=== PATIENT | male | born 1950 | race Two or more races ===

== ENCOUNTER → 2016-04-21 | Outpatient (CLI) | payer BC ==
[~2016-04-21] MED LIST: ASPI81CH43 GT; LEVO125T66 OR; LOSA50TA26 OR; ROSU10TA16 OR; SITA50TA13 OR
[2016-04-21 08:32] LABS: Urine RBC None Seen /hpf (0 - 3)
[2016-04-21 08:50] LABS: Basophils # (auto) 0 uL; Basophils % (auto) 0.4 % (0.0-2.0); Eosinophils # (auto) 0.1 uL; Eosinophils % (auto) 1.7 % (0.0-7.0); Hematocrit 44.8 % (41.0-53.0); Hemoglobin 14.6 g/dL (13.5-17.5); Lymphocytes # (auto) 2.3 uL; Mean Corpuscular Hemoglobin 28.7 pg (28.0-32.0); Mean Corpuscular Hgb Conc. 32.5 g/dL (32.0-36.0); Mean Corpuscular Volume 88.3 fL (80.0-100.0); Mean Platelet Volume 7.8 fL (7.4-10.4); Monocytes # (auto) 0.7 uL; Monocytes % (auto) 9.1 % (0.0-12.0); Neutrophils # (auto) 4.7 uL; Neutrophils % (auto) 59.8 % (37.0-80.0); Platelet Count (auto) 243 10^3/uL (140-450); Red Cell Distribution Width 14.1 % (11.6-16.0); White Blood Cell 7.8 10^3/uL (4.4-10.8)
[2016-04-21 08:58] LABS: Urine Bilirubin Negative (Negative); Urine Blood Negative /uL (Negative); Urine Color Yellow (Yellow); Urine Ketone Negative (Negative); Urine Nitrite Negative (Negative); Urine Squamous Epithelial Cell FEW /hpf (<5); Urine Urobilinogen Normal (Negative)
[2016-04-21 09:12] LABS: Albumin 4.3 g/dL (3.4-5.0); Bilirubin, Total 0.4 mg/dL (0.2-1.0); Calcium 9.9 mg/dL (8.5-10.1); Potassium 4.6 mmol/L (3.5-5.1); Total Protein 7.7 g/dL (6.4-8.2); Urine Glucose 4+ mg/dL (Normal)
[2016-04-21 09:17] LABS: Urine Protein/Creatinine Ratio 0.12
== END | disposition home or self-care (01) ==
LOC: LAB 08:16
DX: E03.9 Hypothyroidism, unspecified (principal); E13.9 Other specified diabetes mellitus without complications; E11.9 Type 2 diabetes mellitus without complications; E78.00 Pure hypercholesterolemia, unspecified
CPT/HCPCS: 36415; 80053; 80061; 81001; 82043; 82570; 83036; 84156; 84443; 85025

== ENCOUNTER 2016-05-13 19:17 | Emergency (ER) | payer BC ==
[~2016-05-13] VITALS: Ht 160 cm; Wt 62.6 kg
[2016-05-13] MEDS ORDERED: SODIUM CHLORIDE 0.9% 500 ML IV ONE (19:52)
[2016-05-13] MEDS ORDERED: ONDANSETRON HCL 4 MG/2 ML VIAL IV ONE (20:00)
[2016-05-13] MEDS ORDERED: MORPHINE SULFATE 4 MG/ML SYRG IV ONE (20:00)
[2016-05-13 20:30] VITALS: BP 126/77
[2016-05-13] MEDS ORDERED: HYDROmorphone HCL 2 MG/ML VL IV ONE (21:30)
== END 2016-05-13 21:54 | disposition home or self-care (01) ==
LOC: EEVIPCON 19:22 → EDUNIT# 19:22 → ER 19:22
DX: M25.511 Pain in right shoulder (principal); M54.2 Cervicalgia; E11.9 Type 2 diabetes mellitus without complications; E78.5 Hyperlipidemia, unspecified; I10 Essential (primary) hypertension
CPT/HCPCS: 96361; 96374; 96375; 99285; J1170; J2270; J2405

== ENCOUNTER 2016-05-14 07:09 | Emergency (ER) | payer BC ==
[~2016-05-14] VITALS: Ht 160 cm; Wt 62.6 kg
[2016-05-14 08:15] LABS: Basophils # (auto) 0 uL; Basophils % (auto) 0.3 % (0.0-2.0); Eosinophils # (auto) 0 uL; Eosinophils % (auto) 0.5 % (0.0-7.0); Hematocrit 42.1 % (41.0-53.0); Hemoglobin 13.9 g/dL (13.5-17.5); Lymphocytes # (auto) 1.9 uL; Lymphocytes % (auto) 28.9 % (10.0-50.0); Mean Corpuscular Volume 87.9 fL (80.0-100.0); Mean Platelet Volume 7.2 fL (7.4-10.4); Monocytes # (auto) 0.5 uL; Neutrophils # (auto) 4.1 uL; Neutrophils % (auto) 62.3 % (37.0-80.0); Platelet Count (auto) 239 10^3/uL (140-450); White Blood Cell 6.6 10^3/uL (4.4-10.8)
[2016-05-14] MEDS ORDERED: SODIUM CHLORIDE 0.9% 1,000 ML IV ONE (08:16)
[2016-05-14 08:24] LABS: Albumin 3.7 g/dL (3.4-5.0); BUN/Creatinine Ratio 17.5; Calcium 9.4 mg/dL (8.5-10.1); Potassium 3.9 mmol/L (3.5-5.1)
[2016-05-14] MEDS ORDERED: KETOROLAC TROMETH 30 MG/ML 1ML VIAL IV ONE (08:30)
[2016-05-14] MEDS ORDERED: PROMETHAZINE HCL 25 MG/ML 1ML IV ONE (08:30)
[2016-05-14] MEDS ORDERED: DEXAMETHASONE SOD PHOS 10MG/1ML VIAL INJ IV ONE (08:30)
[2016-05-14 08:36] LABS: Bilirubin, Total 0.4 mg/dL (0.2-1.0); Total Protein 6.9 g/dL (6.4-8.2)
[2016-05-14] MEDS ORDERED: ONDANSETRON HCL 4 MG/2 ML VIAL IV ONE (12:45)
[2016-05-14] MEDS ORDERED: MORPHINE SULF INJ 2 MG/ML SYRINGE 1ML IV ONE (12:45)
[2016-05-14 13:11] VITALS: BP 130/72
== END 2016-05-14 14:23 | disposition home or self-care (01) ==
LOC: ER 07:10 → EDUNIT# 07:10 → ER 14:23
DX: M54.12 Radiculopathy, cervical region (principal); S46.911D Strain of unspecified muscle, fascia and tendon at shoulder and upper arm level, right arm, subsequent encounter; R51 Headache; E11.9 Type 2 diabetes mellitus without complications; E78.5 Hyperlipidemia, unspecified; Z88.0 Allergy status to penicillin; Z88.6 Allergy status to analgesic agent
CPT/HCPCS: 36415; 70450; 80053; 83735; 84443; 84484; 85025; 96361; 96374; 96375; 99285; J1100; J1885; J2270; J2405; J2550; J7030

== ENCOUNTER 2020-07-31 20:43 | Emergency (ER) | payer BC ==
[~2020-07-31] VITALS: Ht 175.3 cm; Wt 72.6 kg
[~2020-07-31 20:43] MED LIST changes: +LEVO125T OR; -LEVO125T66 OR; -LOSA50TA26 OR; +LOSA50TA7 OR
[2020-07-31] MEDS ORDERED: BACITRACIN TOP OINT 1 UD PKG TOP ONE ×2 (21:00→23:28)
[2020-07-31] MEDS ORDERED: KETOROLAC TROMETH 30 MG/ML 1ML VIAL IV ONE (21:45)
[2020-07-31 22:06] LABS: Basophils # (auto) 0 10 ^3/uL (0-0.2); Eosinophils # (auto) 0.1 10 ^3/uL (0-0.8); Hemoglobin 11.9 g/dL (13.5-17.5); Nucleated Red Blood Cells % 0.1 %; Platelet Count (auto) 197 10^3/uL (140-450)
[2020-07-31 22:07] VITALS: BP 133/92
[2020-07-31 22:08] LABS: Basophils % (auto) 0.5 % (0.0-2.0); Eosinophils % (auto) 0.9 % (0.0-7.0); Hematocrit 35.3 % (41.0-53.0); Lymphocytes # (auto) 1.6 10 ^3/uL (0.4-5.4); Lymphocytes % (auto) 21.3 % (10.0-50.0); Mean Corpuscular Hemoglobin 27.4 pg (28.0-32.0); Mean Corpuscular Hgb Conc. 33.8 g/dL (32.0-36.0); Monocytes # (auto) 0.7 10 ^3/uL (0-1.3); Monocytes % (auto) 9.8 % (0.0-12.0); Neutrophils # (auto) 5.1 10 ^3/uL (1.6-8.6); Neutrophils % (auto) 67.5 % (37.0-80.0); Red Blood Cells 4.36 10^6/uL (4.5-5.90); Red Cell Distribution Width 16.6 % (11.8-14.3); White Blood Cell 7.5 10^3/uL (4.4-10.8)
[2020-07-31 22:24] LABS: Albumin 3.9 g/dL (3.4-5.0); Anion Gap 9 (5-15); Blood Urea Nitrogen 17 mg/dL (7-18); Calcium 9.6 mg/dL (8.5-10.1); Carbon Dioxide 25 mmol/L (21-32); Chloride 102 mmol/L (98-107); Glucose 182 mg/dL (74-106); INR 1.08 (0.9-1.15); Partial Thromboplastin Time 24.4 sec (23.0-31.2); Sodium 136 mmol/L (136-145)
[2020-07-31 22:29] LABS: Alanine Aminotransferase 35 U/L (16-61); Alkaline Phosphatase 59 U/L (45-117); Aspartate Aminotransferase 27 U/L (15-37); Bilirubin, Total 0.5 mg/dL (0.2-1.0); GFR African American 115 mL/min; GFR Non-African American 95 mL/min
== END 2020-07-31 23:30 | disposition home or self-care (01) ==
LOC: ER 20:43 → EEVIPCON 20:43 → EDBD 20:43 → ER 23:30
DX: S52.234A Nondisplaced oblique fracture of shaft of right ulna, initial encounter for closed fracture (principal); S09.93XA Unspecified injury of face, initial encounter; S51.012A Laceration without foreign body of left elbow, initial encounter; E11.9 Type 2 diabetes mellitus without complications; I10 Essential (primary) hypertension; E78.5 Hyperlipidemia, unspecified; Z79.82 Long term (current) use of aspirin; Z79.899 Other long term (current) drug therapy; W19.XXXA Unspecified fall, initial encounter; Y93.89 Activity, other specified; Y92.89 Other specified places as the place of occurrence of the external cause; Y99.8 Other external cause status
CPT/HCPCS: 29125; 36415; 70450; 70486; 73080; 73090; 73110; 80053; 84484; 85025; 85610; 85730; 96374; 99285; J1885

== ENCOUNTER 2020-08-02 09:26 | Inpatient (IN) | payer BC ==
[~2020-08-02] VITALS: Ht 167.6 cm; Wt 75.4 kg
[2020-08-02 10:12] VITALS: BP 138/77
[2020-08-02 10:47] LABS: Basophils # (auto) 0 10 ^3/uL (0-0.2); Basophils % (auto) 0.3 % (0.0-2.0); Eosinophils # (auto) 0.1 10 ^3/uL (0-0.8); Eosinophils % (auto) 0.9 % (0.0-7.0); Hematocrit 34.9 % (41.0-53.0); Hemoglobin 11.6 g/dL (13.5-17.5); Lymphocytes % (auto) 19.6 % (10.0-50.0); Mean Corpuscular Hemoglobin 27.1 pg (28.0-32.0); Mean Corpuscular Hgb Conc. 33.2 g/dL (32.0-36.0); Mean Corpuscular Volume 81.7 fL (80.0-100.0); Monocytes # (auto) 0.5 10 ^3/uL (0-1.3); Neutrophils # (auto) 3.7 10 ^3/uL (1.6-8.6); Neutrophils % (auto) 69.2 % (37.0-80.0); Nucleated Red Blood Cells % 0.1 %; Platelet Count (auto) 195 10^3/uL (140-450); Red Blood Cells 4.27 10^6/uL (4.5-5.90); Red Cell Distribution Width 16.5 % (11.8-14.3); White Blood Cell 5.3 10^3/uL (4.4-10.8)
[2020-08-02 11:03] LABS: Albumin 3.6 g/dL (3.4-5.0); Calcium 9.4 mg/dL (8.5-10.1); Potassium 4.7 mmol/L (3.5-5.1)
[2020-08-02 11:07] LABS: BUN/Creatinine Ratio 17.6; Bilirubin, Total 0.4 mg/dL (0.2-1.0)
[2020-08-02 11:09] LABS: INR 1.02 (0.9-1.15); Partial Thromboplastin Time 24.1 sec (23.0-31.2)
[2020-08-02] MEDS ORDERED: SITA50TA28 PO (11:10)
[2020-08-02] MEDS ORDERED: ROSU20TA14 PO (11:10)
[2020-08-02] MEDS ORDERED: LOSA-39 PO (11:10)
[2020-08-02] MEDS ORDERED: LEVO112T4 PO (11:10)
[2020-08-02] MEDS ORDERED: MORPHINE SULF INJ 2 MG/ML SYRINGE 1ML IV PRN (11:30)
[2020-08-02] MEDS ORDERED: ACETAMINOPHEN 500 MG TAB PO PRN (11:30)
[2020-08-02] MEDS ORDERED: DEXTROSE (50%) 50ML SYRG IV PRN (11:30)
[2020-08-02] MEDS ORDERED: ONDANSETRON HCL 4 MG/2 ML VIAL IV PRN (11:45)
[2020-08-02] MEDS: InsuLIN REG 1unit/0.01ml Soln (100units/ml) SC SCH ×3 (12:00→23:18)
[2020-08-02] MEDS: ACCU-CHEK COMFORT CURVE STRIP VI SCH ×3 (12:29→23:18)
[2020-08-02 13:00] VITALS: BP 147/88
[2020-08-02 15:23] LABS: Urine WBC None Seen /hpf (0 - 3)
[2020-08-02 15:34] LABS: Urine Bacteria NONE SEEN /hpf (None Seen); Urine Blood Negative /uL (Negative)
[2020-08-02] MEDS: NEOMYCIN-BACITRACIN-POLYM UNITDOSE PKG TOP OINT TOP SCH (16:17)
[2020-08-02 16:28] VITALS: BP 146/70
[2020-08-02] MEDS ORDERED: SODIUM CHLORIDE 0.9% 1,000 ML IV SCH (21:00)
[2020-08-03 05:00] VITALS: BP 136/75
[2020-08-03] MEDS: ACCU-CHEK COMFORT CURVE STRIP VI SCH ×3 (06:10→18:32)
[2020-08-03] MEDS: InsuLIN REG 1unit/0.01ml Soln (100units/ml) SC SCH ×4 (06:13→18:30)
[2020-08-03] MEDS ORDERED: LEVOTHYROXINE SODIUM 112 MCG TAB PO SCH (07:00)
[2020-08-03] MEDS ORDERED: VANCOMYCIN HCL 1000 MG VL ONE (07:00)
[2020-08-03] MEDS ORDERED: BUPIVACAINE 0.25% INJ 50ML VIAL ONE (07:12)
[2020-08-03] MEDS ORDERED: fentaNYL CITRATE 100 MCG/2 ML VL ONE ×2 (07:22→07:51)
[2020-08-03] MEDS ORDERED: MIDAZOLAM HCL 1MG/1ML-2 ML VIAL ONE (07:22)
[2020-08-03] MEDS ORDERED: LIDOCAINE 2% (LOCAL ANESTH.) PF 5ml SDV ONE (07:25)
[2020-08-03] MEDS ORDERED: ONDANSETRON HCL 4 MG/2 ML VIAL ONE (07:25)
[2020-08-03] MEDS ORDERED: PROPOFOL 10 MG/ML 20 ML IV ONE (07:26)
[2020-08-03] MEDS ORDERED: ROCURONIUM 10MG/ML 10ML VIAL IV ONE (07:28)
[2020-08-03] MEDS ORDERED: ONDANSETRON HCL 4 MG/2 ML VIAL IV PRN ×2 (08:30→09:00)
[2020-08-03 09:00] VITALS: BP 138/77
[2020-08-03] MEDS ORDERED: HYDROmorphone HCL 2 MG/ML VL IV PRN ×2 (09:00)
[2020-08-03 09:20] VITALS: BP 160/64
[2020-08-03] MEDS ORDERED: GLYCOPYRROLATE 0.2 MG/ML 1ML VIAL ONE (09:40)
[2020-08-03] MEDS ORDERED: NEOSTIGMINE 1 MG/ML INJ (10mg/10ML VIAL) ONE (09:40)
[2020-08-03] MEDS: LACTATED RINGER'S 1,000 ML IV SCH ×2 (09:50→18:30)
[2020-08-03] MEDS: CLINDAMYCIN 600MG IV 50 ML IV SCH ×2 (09:53→15:48)
[2020-08-03] MEDS: NEOMYCIN-BACITRACIN-POLYM UNITDOSE PKG TOP OINT TOP SCH (11:09)
[2020-08-03] MEDS: HYDROcodone-ACET 5/325MG TAB PO PRN ×2 (11:15→15:58)
[2020-08-03 13:12] LABS: Basophils # (auto) 0 10 ^3/uL (0-0.2); Basophils % (auto) 0.2 % (0.0-2.0); Eosinophils # (auto) 0.1 10 ^3/uL (0-0.8); Eosinophils % (auto) 0.9 % (0.0-7.0); Hematocrit 35.4 % (41.0-53.0); Hemoglobin 11.8 g/dL (13.5-17.5); Lymphocytes # (auto) 1.4 10 ^3/uL (0.4-5.4); Mean Corpuscular Hemoglobin 27.1 pg (28.0-32.0); Mean Corpuscular Hgb Conc. 33.2 g/dL (32.0-36.0); Mean Corpuscular Volume 81.5 fL (80.0-100.0); Monocytes # (auto) 0.5 10 ^3/uL (0-1.3); Monocytes % (auto) 8.7 % (0.0-12.0); Neutrophils % (auto) 67.2 % (37.0-80.0); Platelet Count (auto) 187 10^3/uL (140-450); Red Blood Cells 4.35 10^6/uL (4.5-5.90); Red Cell Distribution Width 16.7 % (11.8-14.3); White Blood Cell 5.9 10^3/uL (4.4-10.8)
[2020-08-03 13:29] LABS: BUN/Creatinine Ratio 16.5; Calcium 8.9 mg/dL (8.5-10.1); Potassium 4.2 mmol/L (3.5-5.1)
[2020-08-03] MEDS ORDERED: SODIUM CHLOR 0.9% PF (SALINE LOCK) 10ML VIAL/SYR IV SCH (14:00)
[2020-08-03] MEDS ORDERED: TAMSULOSIN HYDROCHLORIDE 0.4 MG CAP PO ONE (15:45)
[2020-08-03] MEDS ORDERED: CYANOCOBALAMIN (B-12) 1000 MCG/1 ML VIAL IM ONE (17:15)
[2020-08-03] MEDS ORDERED: cefTRIAXone 1GM/50ML D5W 50 ML IV ONE (18:30)
[2020-08-03] MEDS ORDERED: CIPROFLOXACIN 400MG/200ML 200 ML IV ONE (18:45)
== END 2020-08-03 21:14 | disposition home or self-care (01) | DRG 512 ==
LOC: WEST WING 09:26
PROVIDERS: ADMIT Internal Medicine; ATTEND Internal Medicine
PROC: 0PSK04Z Reposition Right Ulna with Internal Fixation Device, Open Approach (ICD-10-PCS; principal; 2020-08-03 07:24)
DX: S52.201A Unspecified fracture of shaft of right ulna, initial encounter for closed fracture (principal); E03.9 Hypothyroidism, unspecified; E11.9 Type 2 diabetes mellitus without complications; Z20.822 Contact with and (suspected) exposure to COVID-19; E78.5 Hyperlipidemia, unspecified; I10 Essential (primary) hypertension; R04.0 Epistaxis; S50.312A Abrasion of left elbow, initial encounter; Y93.01 Activity, walking, marching and hiking; X58.XXXA Exposure to other specified factors, initial encounter; Y92.89 Other specified places as the place of occurrence of the external cause; Y99.8 Other external cause status; Z88.5 Allergy status to narcotic agent; Z88.8 Allergy status to other drugs, medicaments and biological substances; Z88.0 Allergy status to penicillin; Z79.899 Other long term (current) drug therapy; Z79.891 Long term (current) use of opiate analgesic; Z79.01 Long term (current) use of anticoagulants
CPT/HCPCS: 36415; 70450; 70486; 71045; 73090; 74176; 76000; 80048; 80053; 81001; 82306; 82607; 82962; 83036; 84443; 85025; 85610; 85730; 86850; 86900; 86901; 87426; G0378; J1815; J2001; J2250; J2405; J2704; J3490

== ENCOUNTER 2020-12-15 20:45 | Inpatient (IN) | payer BC, OTHER ==
[~2020-12-15] VITALS: Ht 167.6 cm; Wt 70.8 kg
[~2020-12-15 20:45] MED LIST changes: -ASPI81CH43 GT; +LEVO112T4 PO; -LEVO125T OR; +LOSA-39 PO; -LOSA50TA7 OR; -ROSU10TA16 OR; +ROSU20TA14 PO; -SITA50TA13 OR; +SITA50TA28 PO
[2020-12-15] MEDS ORDERED: HYDROmorphone HCL 2 MG/ML VL ONE (21:14)
[2020-12-15] MEDS ORDERED: ONDANSETRON HCL 4 MG/2 ML VIAL ONE (21:14)
[2020-12-15] MEDS ORDERED: ONDANSETRON HCL 4 MG/2 ML VIAL IM ONE (21:15)
[2020-12-15] MEDS ORDERED: HYDROmorphone HCL 2 MG/ML VL IM ONE (21:15)
[2020-12-15] MEDS ORDERED: SODIUM CHLORIDE 0.9% 1,000 ML IV ONE (22:30)
[2020-12-15 22:35] LABS: Basophils # (auto) 0 10 ^3/uL (0-0.2); Basophils % (auto) 0.4 % (0.0-2.0); Eosinophils # (auto) 0 10 ^3/uL (0-0.8); Lymphocytes # (auto) 1.2 10 ^3/uL (0.4-5.4); Neutrophils % (auto) 75.4 % (37.0-80.0)
[2020-12-15 22:36] LABS: Eosinophils % (auto) 0.4 % (0.0-7.0); Hematocrit 37.9 % (41.0-53.0); Hemoglobin 12.3 g/dL (13.5-17.5); Lymphocytes % (auto) 15.2 % (10.0-50.0); Mean Corpuscular Hemoglobin 25.8 pg (28.0-32.0); Mean Corpuscular Hgb Conc. 32.4 g/dL (32.0-36.0); Mean Corpuscular Volume 79.6 fL (80.0-100.0); Monocytes # (auto) 0.7 10 ^3/uL (0-1.3); Monocytes % (auto) 8.6 % (0.0-12.0); Neutrophils # (auto) 5.9 10 ^3/uL (1.6-8.6); Nucleated Red Blood Cells % 0.1 %; Red Blood Cells 4.77 10^6/uL (4.5-5.90); Red Cell Distribution Width 17.1 % (11.8-14.3); White Blood Cell 7.8 10^3/uL (4.4-10.8)
[2020-12-15 22:56] LABS: Calcium 9.3 mg/dL (8.5-10.1); Potassium 4.2 mmol/L (3.5-5.1)
[2020-12-15 22:59] LABS: BUN/Creatinine Ratio 16.7; Bilirubin, Total 0.5 mg/dL (0.2-1.0); Total Protein 7.4 g/dL (6.4-8.2)
[2020-12-15] MEDS ORDERED: MORPHINE SULFATE INJECTION 2 MG/ML SYRG IV PRN ×2 (23:00→23:15)
[2020-12-15] MEDS ORDERED: NITROGLYCERIN 0.4 MG SL TAB SL PRN (23:00)
[2020-12-15] MEDS ORDERED: KETOROLAC TROMETH 30 MG/ML 1ML VIAL IV ONE (23:15)
[2020-12-15] MEDS ORDERED: TAMSULOSIN HYDROCHLORIDE 0.4 MG CAP PO ONE (23:15)
[2020-12-15] MEDS ORDERED: FAMOTIDINE (10MG/ML) 2ML VL IV ONE (23:15)
[2020-12-15] MEDS ORDERED: traMADol HCL 50 MG TAB PO PRN (23:15)
[2020-12-15] MEDS ORDERED: DEXTROSE (50%) 50ML SYRG IV PRN (23:15)
[2020-12-15] MEDS ORDERED: IBUPROFEN 400 MG TAB PO PRN (23:30)
[2020-12-15] MEDS ORDERED: ONDANSETRON HCL 4 MG/2 ML VIAL IV PRN (23:30)
[2020-12-16] VITALS (13 sets, daily range): BP systolic 116–159; BP diastolic 63–83
[2020-12-16] MEDS: ACCU-CHEK COMFORT CURVE STRIP VI SCH ×4 (00:54→18:17)
[2020-12-16] MEDS: InsuLIN REG 1unit/0.01ml Soln (100units/ml) SC SCH ×4 (01:00→18:18)
[2020-12-16 02:07] LABS: Urine Bacteria NONE SEEN /hpf (None Seen); Urine Blood 2+ /uL (Negative); Urine Hyaline Cast FEW /lpf (0 - 2); Urine Mucus FEW (None Seen); Urine Specific Gravity 1.018 (1.001-1.035); Urine WBC 1 /hpf (0 - 3)
[2020-12-16 02:32] LABS: Blood Alcohol < 3.0 mg/dL (0-5)
[2020-12-16 02:48] LABS: Creatine Kinase IFCC 1250 U/L (39-308)
[2020-12-16] MEDS: LEVOTHYROXINE SODIUM 112 MCG TAB PO SCH (06:38)
[2020-12-16 06:46] LABS: Basophils # (auto) 0 10 ^3/uL (0-0.2); Basophils % (auto) 0.3 % (0.0-2.0); Eosinophils # (auto) 0 10 ^3/uL (0-0.8); Hemoglobin 10.3 g/dL (13.5-17.5); Monocytes # (auto) 0.4 10 ^3/uL (0-1.3); Neutrophils % (auto) 67.6 % (37.0-80.0)
[2020-12-16 06:49] LABS: Eosinophils % (auto) 0.4 % (0.0-7.0); Hematocrit 31.6 % (41.0-53.0); Lymphocytes # (auto) 0.9 10 ^3/uL (0.4-5.4); Lymphocytes % (auto) 21.9 % (10.0-50.0); Mean Corpuscular Hgb Conc. 32.7 g/dL (32.0-36.0); Mean Corpuscular Volume 79.4 fL (80.0-100.0); Monocytes % (auto) 9.8 % (0.0-12.0); Neutrophils # (auto) 2.9 10 ^3/uL (1.6-8.6); Red Blood Cells 3.98 10^6/uL (4.5-5.90); Red Cell Distribution Width 17.2 % (11.8-14.3); White Blood Cell 4.3 10^3/uL (4.4-10.8)
[2020-12-16 07:05] LABS: Potassium 3.8 mmol/L (3.5-5.1)
[2020-12-16 07:09] LABS: Albumin 3.2 g/dL (3.4-5.0); Calcium 8.4 mg/dL (8.5-10.1)
[2020-12-16 07:20] LABS: Bilirubin, Total 0.6 mg/dL (0.2-1.0)
[2020-12-16] MEDS ORDERED: KETOROLAC TROMETH 30 MG/ML 1ML VIAL IV PRN (09:15)
[2020-12-16] MEDS: FAMOTIDINE (10MG/ML) 2ML VL IV SCH (09:43)
[2020-12-16] MEDS: LOSARTAN POTASSIUM 50 MG TAB PO SCH (09:48)
[2020-12-16] MEDS ORDERED: FUROSEMIDE 20 MG/2 ML VIAL IV ONE (10:00)
[2020-12-16] MEDS ORDERED: IOHEXOL 300 MG/ML 100ML BOTTLE IJ ONE (10:32)
[2020-12-16] MEDS ORDERED: HYDROcodone-ACET 5/325MG TAB PO PRN (14:15)
[2020-12-16] MEDS ORDERED: HYDROcodone-ACET 5/325MG TAB ONE (14:55)
[2020-12-16] MEDS ORDERED: METHOCARBAMOL 500 MG TAB ONE (14:56)
[2020-12-16] MEDS: METHOCARBAMOL 500 MG TAB PO PRN ×2 (15:07→21:00)
[2020-12-16] MEDS: HYDROcodone-ACET 5/325MG TAB PO PRN ×2 (15:08→20:53)
[2020-12-16 15:16] LABS: Hematocrit 34.2 % (41.0-53.0); Hemoglobin 10.9 g/dL (13.5-17.5)
[2020-12-16 16:52] LABS: Basophils # (auto) 0 10 ^3/uL (0-0.2); Basophils % (auto) 0.3 % (0.0-2.0); Eosinophils # (auto) 0 10 ^3/uL (0-0.8); Eosinophils % (auto) 0.4 % (0.0-7.0); Hematocrit 32.4 % (41.0-53.0); Hemoglobin 10.3 g/dL (13.5-17.5); Lymphocytes # (auto) 0.8 10 ^3/uL (0.4-5.4); Lymphocytes % (auto) 16.8 % (10.0-50.0); Mean Corpuscular Hemoglobin 25.6 pg (28.0-32.0); Mean Corpuscular Hgb Conc. 31.6 g/dL (32.0-36.0); Mean Corpuscular Volume 80.8 fL (80.0-100.0); Monocytes # (auto) 0.3 10 ^3/uL (0-1.3); Monocytes % (auto) 7.4 % (0.0-12.0); Neutrophils # (auto) 3.4 10 ^3/uL (1.6-8.6); Neutrophils % (auto) 75.1 % (37.0-80.0); Nucleated Red Blood Cells % 0.1 %; Red Blood Cells 4.01 10^6/uL (4.5-5.90); Red Cell Distribution Width 17.3 % (11.8-14.3); White Blood Cell 4.5 10^3/uL (4.4-10.8)
[2020-12-16 17:07] LABS: INR 1.13 (0.9-1.15); Partial Thromboplastin Time 25.9 sec (23.6-33.0)
[2020-12-16] MEDS ORDERED: MIDAZOLAM HCL 2MG/2ML 2ml VIAL (1mg/ml) IV ONE (18:30)
[2020-12-16] MEDS ORDERED: fentaNYL CITRATE 100 MCG/2 ML VL IV ONE (18:30)
[2020-12-16] MEDS ORDERED: LIDOCAINE 2%HCL (LOCAL ANESTH.) INJ 20ML MDV ONE (18:38)
[2020-12-16] MEDS: TAMSULOSIN HYDROCHLORIDE 0.4 MG CAP PO SCH (20:53)
[2020-12-16] MEDS ORDERED: METHOCARBAMOL 500 MG TAB PO SCH (22:00)
[2020-12-17] MEDS: ACCU-CHEK COMFORT CURVE STRIP VI SCH ×5 (03:00→21:46)
[2020-12-17] MEDS: InsuLIN REG 1unit/0.01ml Soln (100units/ml) SC SCH ×4 (03:00→18:37)
[2020-12-17 05:00] VITALS: BP 133/74
[2020-12-17] MEDS: LEVOTHYROXINE SODIUM 112 MCG TAB PO SCH (06:49)
[2020-12-17 07:57] LABS: Basophils # (auto) 0 10 ^3/uL (0-0.2); Eosinophils # (auto) 0 10 ^3/uL (0-0.8); Eosinophils % (auto) 0.9 % (0.0-7.0); Hematocrit 31.7 % (41.0-53.0); Hemoglobin 10.3 g/dL (13.5-17.5); Mean Corpuscular Hgb Conc. 32.5 g/dL (32.0-36.0); Neutrophils # (auto) 3.6 10 ^3/uL (1.6-8.6)
[2020-12-17 07:59] LABS: Basophils % (auto) 0.4 % (0.0-2.0); Lymphocytes # (auto) 0.8 10 ^3/uL (0.4-5.4); Mean Corpuscular Hemoglobin 25.9 pg (28.0-32.0); Mean Corpuscular Volume 79.8 fL (80.0-100.0); Monocytes # (auto) 0.3 10 ^3/uL (0-1.3); Monocytes % (auto) 6.1 % (0.0-12.0); Neutrophils % (auto) 75.6 % (37.0-80.0); Red Blood Cells 3.97 10^6/uL (4.5-5.90); Red Cell Distribution Width 17.1 % (11.8-14.3); White Blood Cell 4.8 10^3/uL (4.4-10.8)
[2020-12-17 08:19] LABS: Calcium 8.7 mg/dL (8.5-10.1); Potassium 4.6 mmol/L (3.5-5.1)
[2020-12-17 08:23] LABS: BUN/Creatinine Ratio 12.9; Magnesium 2.4 mg/dL (1.6-2.6)
[2020-12-17] MEDS: METHOCARBAMOL 500 MG TAB PO PRN ×3 (08:28→21:54)
[2020-12-17] MEDS: HYDROcodone-ACET 5/325MG TAB PO PRN (08:28)
[2020-12-17 09:00] VITALS: BP 141/70
[2020-12-17] MEDS ORDERED: DEXTROSE (50%) 50ML SYRG IV PRN (10:30)
[2020-12-17] MEDS: FAMOTIDINE (10MG/ML) 2ML VL IV SCH (12:04)
[2020-12-17] MEDS: LOSARTAN POTASSIUM 50 MG TAB PO SCH (12:05)
[2020-12-17] MEDS ORDERED: INSULIN LISPRO (HUMAN) 100 UNITS/ML ML SC ONE (12:15)
[2020-12-17 13:00] VITALS: BP 142/71
[2020-12-17] MEDS: TAMSULOSIN HYDROCHLORIDE 0.4 MG CAP PO SCH (18:00)
[2020-12-17] MEDS: KETOROLAC TROMETH 30 MG/ML 1ML VIAL IV PRN (18:49)
[2020-12-17] MEDS: NEOMYCIN-BACITRACIN-POLYM 15GM TOP OINT TOP SCH (21:46)
[2020-12-17 22:00] VITALS: BP 124/78
[2020-12-17] MEDS ORDERED: InsuLIN REG 1unit/0.01ml Soln (100units/ml) SC SCH (22:00)
[2020-12-18] MEDS: KETOROLAC TROMETH 30 MG/ML 1ML VIAL IV PRN (04:47)
[2020-12-18] MEDS: LEVOTHYROXINE SODIUM 112 MCG TAB PO SCH (04:52)
[2020-12-18] MEDS: METHOCARBAMOL 500 MG TAB PO PRN (04:52)
[2020-12-18 05:00] VITALS: BP 148/80
[2020-12-18] MEDS: ACCU-CHEK COMFORT CURVE STRIP VI SCH ×2 (05:01→11:30)
[2020-12-18] MEDS: NEOMYCIN-BACITRACIN-POLYM 15GM TOP OINT TOP SCH ×2 (05:31→14:00)
[2020-12-18 07:04] LABS: Basophils # (auto) 0 10 ^3/uL (0-0.2); Eosinophils # (auto) 0.1 10 ^3/uL (0-0.8); Lymphocytes # (auto) 0.9 10 ^3/uL (0.4-5.4); Monocytes # (auto) 0.3 10 ^3/uL (0-1.3); Nucleated Red Blood Cells % 0.1 %; Red Blood Cells 4.15 10^6/uL (4.5-5.90); White Blood Cell 5.3 10^3/uL (4.4-10.8)
[2020-12-18 07:08] LABS: Basophils % (auto) 0.4 % (0.0-2.0); Eosinophils % (auto) 1.8 % (0.0-7.0); Hematocrit 33.6 % (41.0-53.0); Hemoglobin 10.8 g/dL (13.5-17.5); Lymphocytes % (auto) 17.9 % (10.0-50.0); Mean Corpuscular Hgb Conc. 32.2 g/dL (32.0-36.0); Mean Corpuscular Volume 80.8 fL (80.0-100.0); Monocytes % (auto) 5.4 % (0.0-12.0); Neutrophils # (auto) 3.9 10 ^3/uL (1.6-8.6); Neutrophils % (auto) 74.5 % (37.0-80.0); Red Cell Distribution Width 17.9 % (11.8-14.3)
[2020-12-18 07:28] LABS: Calcium 8.5 mg/dL (8.5-10.1); Potassium 4.6 mmol/L (3.5-5.1)
[2020-12-18 07:31] LABS: Albumin 3.2 g/dL (3.4-5.0); BUN/Creatinine Ratio 12.5
[2020-12-18 07:34] LABS: Total Protein 6.7 g/dL (6.4-8.2)
[2020-12-18 09:00] VITALS: BP 156/47
[2020-12-18] MEDS: InsuLIN REG 1unit/0.01ml Soln (100units/ml) SC SCH ×2 (09:22→11:30)
[2020-12-18] MEDS: FAMOTIDINE (10MG/ML) 2ML VL IV SCH (09:29)
[2020-12-18] MEDS: LOSARTAN POTASSIUM 50 MG TAB PO SCH (10:00)
== END 2020-12-18 14:50 | disposition home or self-care (01) | DRG 200 ==
LOC: EDBD 20:45 → EEVIPCON 20:51 → ER 20:51 → TELE-CENTR 22:58
PROVIDERS: ADMIT Internal Medicine; ATTEND Internal Medicine
PROC: 0W9B30Z Drainage of Left Pleural Cavity with Drainage Device, Percutaneous Approach (ICD-10-PCS; principal; 2020-12-16)
DX: J93.9 Pneumothorax, unspecified (principal); M62.82 Rhabdomyolysis; J81.1 Chronic pulmonary edema; M48.56XA Collapsed vertebra, not elsewhere classified, lumbar region, initial encounter for fracture; E11.9 Type 2 diabetes mellitus without complications; E03.9 Hypothyroidism, unspecified; D64.9 Anemia, unspecified; E78.5 Hyperlipidemia, unspecified; I10 Essential (primary) hypertension; M47.812 Spondylosis without myelopathy or radiculopathy, cervical region; S13.9XXA Sprain of joints and ligaments of unspecified parts of neck, initial encounter; S50.11XA Contusion of right forearm, initial encounter; Z20.822 Contact with and (suspected) exposure to COVID-19; S33.5XXA Sprain of ligaments of lumbar spine, initial encounter; S93.409A Sprain of unspecified ligament of unspecified ankle, initial encounter; Z88.1 Allergy status to other antibiotic agents; Z88.0 Allergy status to penicillin; Z88.5 Allergy status to narcotic agent; V49.9XXA Car occupant (driver) (passenger) injured in unspecified traffic accident, initial encounter; Y93.89 Activity, other specified; Y99.8 Other external cause status; Y92.410 Unspecified street and highway as the place of occurrence of the external cause
CPT/HCPCS: 36415; 70450; 71045; 71046; 71250; 71260; 72125; 72128; 72131; 72141; 72146; 72148; 73090; 73200; 73590; 73610; 74176; 74177; 80048; 80053; 80320; 81001; 82550; 82962; 83036; 83735; 83880; 84443; 85014; 85018; 85025; 85610; 85730; 87426; 96360; 96372; 99291; A4223; C1729; G0378; J1815; J1885; J2250; J2405; J3490

== ENCOUNTER → 2023-03-06 | Outpatient (CLI) | payer BC ==
[~2023-03-06] MED LIST changes: -LOSA-39 PO; +LOSA100T58 PO
[2023-03-06 10:03] LABS: Basophils # (auto) 0 10 ^3/uL (0-0.2); Basophils % (auto) 0.5 % (0.0-2.0); Eosinophils # (auto) 0.1 10 ^3/uL (0-0.8); Eosinophils % (auto) 3.4 % (0.0-7.0); Hematocrit 42.6 % (41.0-53.0); Hemoglobin 13.6 g/dL (13.5-17.5); Lymphocytes # (auto) 1.9 10 ^3/uL (0.4-5.4); Mean Corpuscular Hemoglobin 27.9 pg (28.0-32.0); Mean Corpuscular Hgb Conc. 31.9 g/dL (32.0-36.0); Mean Corpuscular Volume 87.4 fL (80.0-100.0); Monocytes # (auto) 0.4 10 ^3/uL (0-1.3); Monocytes % (auto) 9.4 % (0.0-12.0); Neutrophils # (auto) 1.8 10 ^3/uL (1.6-8.6); Neutrophils % (auto) 42.7 % (37.0-80.0); Nucleated Red Blood Cells % 0.1 %; Red Blood Cells 4.87 10^6/uL (4.5-5.90); Red Cell Distribution Width 15.3 % (11.8-14.3); White Blood Cell 4.3 10^3/uL (4.4-10.8)
[2023-03-06 10:17] LABS: Alanine Aminotransferase 42 U/L (7-40); Albumin 4.9 g/dL (3.2-4.8); Alkaline Phosphatase 66 U/L (46-116); Anion Gap 6 (5-15); Aspartate Aminotransferase 31 U/L (13-40); BUN/Creatinine Ratio 12.1 (10.0-20.0); Blood Urea Nitrogen 12 mg/dL (9-23); Calcium 10.3 mg/dL (8.5-10.1); Carbon Dioxide 29 mmol/L (20-30); Chloride 107 mmol/L (98-107); Glucose 165 mg/dL (74-106); LDL Cholesterol 86 mg/dL (< 100); Potassium 4.5 mmol/L (3.5-5.1); Sodium 142 mmol/L (136-145); Triglycerides 91 mg/dL (< 150)
[2023-03-06 10:18] LABS: Cholesterol 139 mg/dL (< 200); HDL Cholesterol 43 mg/dL (40-59)
[2023-03-06 10:19] LABS: Bilirubin, Total 0.6 mg/dL (0.2-1.0); Total Protein 7.3 g/dL (5.7-8.2)
[2023-03-06 10:35] LABS: Urine Bacteria FEW /hpf (None Seen); Urine Blood Negative /uL (Negative); Urine Clarity Clear (Clear); Urine Color Yellow (Yellow); Urine Protein, UAD 1+ (Negative); Urine Specific Gravity 1.019 (1.001-1.035); Urine Urobilinogen Normal (Negative); Urine WBC 1 /hpf (0 - 3); Urine pH 5.5 (5.0-8.0)
[2023-03-06 10:38] LABS: Prostate Specific Antigen 0.25 ng/mL (0.0-4.0)
[2023-03-06 11:12] LABS: Creatinine, Urine 131.18 mg/dL (30.0-125.0)
[2023-03-06 11:13] LABS: Protein, Urine 56.1 mg/dL (0.0-11.9); Urine Protein/Creatinine Ratio 0.43
== END | disposition home or self-care (01) ==
LOC: LAB 09:13
PROVIDERS: ATTEND Internal Medicine
DX: Z00.00 Encounter for general adult medical examination without abnormal findings (principal)
CPT/HCPCS: 36415; 80053; 80061; 81001; 82043; 82306; 82570; 82607; 83036; 84153; 84156; 84443; 85025

== ENCOUNTER → 2023-10-22 | Outpatient (CLI) | payer BC ==
[~2023-10-22] MED LIST changes: +LOSA-535 PO; -LOSA100T58 PO
[2023-10-22 08:47] LABS: Urine Bacteria None Seen /hpf (None Seen)
[2023-10-22 08:52] LABS: Basophils # (auto) 0 10 ^3/uL (0-0.2); Basophils % (auto) 0.4 % (0.0-2.0); Eosinophils # (auto) 0.1 10 ^3/uL (0-0.8); Eosinophils % (auto) 2.9 % (0.0-7.0); Hematocrit 43.4 % (41.0-53.0); Hemoglobin 13.9 g/dL (13.5-17.5); Lymphocytes # (auto) 2.2 10 ^3/uL (0.4-5.4); Lymphocytes % (auto) 41.5 % (10.0-50.0); Mean Corpuscular Hemoglobin 27.4 pg (28.0-32.0); Mean Corpuscular Hgb Conc. 32.1 g/dL (32.0-36.0); Mean Corpuscular Volume 85.4 fL (80.0-100.0); Monocytes # (auto) 0.4 10 ^3/uL (0-1.3); Neutrophils # (auto) 2.5 10 ^3/uL (1.6-8.6); Neutrophils % (auto) 47.2 % (37.0-80.0); Platelet Count (auto) 219 10^3/uL (140-450); Red Blood Cells 5.08 10^6/uL (4.5-5.90); White Blood Cell 5.2 10^3/uL (4.4-10.8)
[2023-10-22 08:59] LABS: Urine Blood Negative /uL (Negative); Urine Clarity Clear (Clear); Urine Color Light-Yellow (Yellow); Urine Protein, UAD Negative (Negative); Urine Urobilinogen Normal (Negative); Urine WBC 1 /hpf (0 - 3); Urine pH 5.5 (5.0-9.0)
[2023-10-22 09:24] LABS: Erythrocyte Sedimentation Rate 9 mm/hr (0-20)
[2023-10-22 09:50] LABS: Protein, Urine 12.8 mg/dL (0.0-11.9)
[2023-10-22 09:51] LABS: Alanine Aminotransferase 25 U/L (7-40); Albumin 4.8 g/dL (3.2-4.8); Alkaline Phosphatase 83 U/L (46-116); Anion Gap 7 (5-15); Aspartate Aminotransferase 20 U/L (13-40); BUN/Creatinine Ratio 12.6 (10.0-20.0); Bilirubin, Total 0.6 mg/dL (0.2-1.0); Blood Urea Nitrogen 12 mg/dL (9-23); Calcium 10.5 mg/dL (8.7-10.4); Carbon Dioxide 28 mmol/L (20-30); Chloride 105 mmol/L (98-107); Cholesterol 161 mg/dL (< 200); Glucose 139 mg/dL (74-106); HDL Cholesterol 49 mg/dL (40-59); LDL Cholesterol 101 mg/dL (< 100); Potassium 4.2 mmol/L (3.5-5.1); Sodium 140 mmol/L (136-145); Total Protein 7.5 g/dL (5.7-8.2); Triglycerides 95 mg/dL (< 150)
[2023-10-22 09:53] LABS: Creatinine, Urine 54.89 mg/dL (30.0-125.0); Urine Protein/Creatinine Ratio 0.23
[2023-10-22 10:44] LABS: Prostate Specific Antigen 0.77 ng/mL (0.0-4.0)
== END | disposition home or self-care (01) ==
LOC: LAB 08:38
PROVIDERS: ATTEND Internal Medicine
DX: Z00.00 Encounter for general adult medical examination without abnormal findings (principal)
CPT/HCPCS: 36415; 80053; 80061; 81001; 82043; 82306; 82570; 82607; 83036; 83735; 84153; 84156; 84443; 85025; 85652

== ENCOUNTER → 2024-03-16 | Outpatient (CLI) | payer BC, MEDICARE | END | disposition home or self-care (01) | LOC: LAB 13:30 | PROVIDERS: ATTEND Internal Medicine | DX: Z00.00 Encounter for general adult medical examination without abnormal findings (principal) | CPT/HCPCS: 87070; 87077; 87205 ==

== ENCOUNTER → 2024-03-28 | Outpatient (CLI) | payer BC, MEDICARE ==
[~2024-03-28] MED LIST changes: +CEFD300C2 PO
[2024-03-28 09:01] LABS: Urine Bacteria None Seen /hpf (None Seen)
[2024-03-28 09:23] LABS: Urine Blood Negative /uL (Negative); Urine Clarity Clear (Clear); Urine Color Light-Yellow (Yellow); Urine Protein, UAD Negative (Negative); Urine Specific Gravity 1.022 (1.001-1.035); Urine Squamous Epithelial Cell None Seen /hpf (<5); Urine Urobilinogen Normal (Negative); Urine WBC < 1 /HPF (0-3); Urine pH 5.5 (5.0-9.0)
[2024-03-28 09:40] LABS: Basophils # (auto) 0 10 ^3/uL (0-0.2); Basophils % (auto) 0.4 % (0.0-2.0); Eosinophils # (auto) 0.3 10 ^3/uL (0-0.8); Hematocrit 43.2 % (41.0-53.0); Hemoglobin 13.9 g/dL (13.5-17.5); Lymphocytes % (auto) 48.9 % (10.0-50.0); Mean Corpuscular Hemoglobin 27.3 pg (28.0-32.0); Mean Corpuscular Hgb Conc. 32.1 g/dL (32.0-36.0); Mean Corpuscular Volume 85.2 fL (80.0-100.0); Monocytes # (auto) 0.4 10 ^3/uL (0-1.3); Neutrophils # (auto) 1.4 10 ^3/uL (1.6-8.6); Neutrophils % (auto) 33.7 % (37.0-80.0); Nucleated Red Blood Cells % 0.1 %; Platelet Count (auto) 213 10^3/uL (140-450); Red Blood Cells 5.07 10^6/uL (4.5-5.90); Red Cell Distribution Width 16.9 % (11.8-14.3); White Blood Cell 4.2 10^3/uL (4.4-10.8)
[2024-03-28 09:51] LABS: Creatinine, Urine 82.17 mg/dL (30.0-125.0); Protein, Urine 18.5 mg/dL (1-14); Urine Protein/Creatinine Ratio 0.23
[2024-03-28 09:55] LABS: Alanine Aminotransferase 25 U/L (7-40); Alkaline Phosphatase 76 U/L (46-116); Anion Gap 11 (5-15); Aspartate Aminotransferase 25 U/L (13-40); BUN/Creatinine Ratio 11.6 (10.0-20.0); Bilirubin, Total 0.7 mg/dL (0.2-1.0); Blood Urea Nitrogen 11 mg/dL (9-23); Carbon Dioxide 27 mmol/L (20-31); Chloride 103 mmol/L (98-107); Cholesterol 168 mg/dL (< 200); Glucose 89 mg/dL (74-106); HDL Cholesterol 50 mg/dL (40-59); Magnesium 2.2 mg/dL (1.6-2.6); Sodium 141 mmol/L (136-145); Total Protein 7.6 g/dL (5.7-8.2); Triglycerides 117 mg/dL (< 150)
[2024-03-28 09:57] LABS: Albumin 5.2 g/dL (3.2-4.8); Calcium 10.7 mg/dL (8.7-10.4); LDL Cholesterol 110 mg/dL (< 100)
== END | disposition home or self-care (01) ==
LOC: LAB 08:48
PROVIDERS: ATTEND Internal Medicine
DX: Z00.00 Encounter for general adult medical examination without abnormal findings (principal)
CPT/HCPCS: 36415; 80053; 80061; 81001; 82043; 82570; 83036; 83735; 84153; 84156; 84443; 85025

== ENCOUNTER → 2024-04-13 | Outpatient (CLI) | payer BC, MEDICARE | END | disposition home or self-care (01) | LOC: LAB 15:53 | PROVIDERS: ATTEND Internal Medicine | DX: Z00.00 Encounter for general adult medical examination without abnormal findings (principal) | CPT/HCPCS: 87070; 87205 ==

== ENCOUNTER → 2024-04-26 | Outpatient (CLI) | payer BC, MEDICARE ==
[~2024-04-26] MED LIST changes: +MINO100C4 PO
[2024-04-26 16:06] LABS: Basophils # (auto) 0 10 ^3/uL (0-0.2); Eosinophils # (auto) 0.3 10 ^3/uL (0-0.8); Hemoglobin 13.6 g/dL (13.5-17.5); Lymphocytes # (auto) 1.8 10 ^3/uL (0.4-5.4); Monocytes # (auto) 0.6 10 ^3/uL (0-1.3); Nucleated Red Blood Cells % 0.1 %
[2024-04-26 16:07] LABS: Basophils % (auto) 0.8 % (0.0-2.0); Hematocrit 43.1 % (41.0-53.0); Lymphocytes % (auto) 39.9 % (10.0-50.0); Mean Corpuscular Hemoglobin 26.2 pg (28.0-32.0); Mean Corpuscular Hgb Conc. 31.6 g/dL (32.0-36.0); Mean Corpuscular Volume 82.9 fL (80.0-100.0); Neutrophils # (auto) 1.8 10 ^3/uL (1.6-8.6); Neutrophils % (auto) 40.3 % (37.0-80.0); Platelet Count (auto) 226 10^3/uL (140-450); Red Cell Distribution Width 16.7 % (11.8-14.3); White Blood Cell 4.5 10^3/uL (4.4-10.8)
[2024-04-26 16:50] LABS: Alanine Aminotransferase 24 U/L (7-40); Alkaline Phosphatase 75 U/L (46-116); Anion Gap 6 (5-15); Aspartate Aminotransferase 26 U/L (13-40); BUN/Creatinine Ratio 16.8 (10.0-20.0); Bilirubin, Total 0.5 mg/dL (0.2-1.0); Blood Urea Nitrogen 17 mg/dL (9-23); Carbon Dioxide 29 mmol/L (20-31); Chloride 107 mmol/L (98-107); Glucose 104 mg/dL (74-106); Potassium 4.7 mmol/L (3.5-5.1); Sodium 142 mmol/L (136-145); Total Protein 7.1 g/dL (5.7-8.2)
[2024-04-26 16:57] LABS: Albumin 4.8 g/dL (3.2-4.8); Calcium 10.7 mg/dL (8.7-10.4)
== END | disposition home or self-care (01) ==
LOC: LAB 15:52
PROVIDERS: ATTEND Internal Medicine
DX: Z00.00 Encounter for general adult medical examination without abnormal findings (principal)
CPT/HCPCS: 36415; 80053; 83036; 85025

== ENCOUNTER → 2024-05-09 | Outpatient (CLI) | payer BC, MEDICARE ==
[~2024-05-09] MED LIST changes: +FLUT1SPR5
[2024-05-09 10:22] LABS: Basophils # (auto) 0 10 ^3/uL (0-0.2); Basophils % (auto) 0.4 % (0.0-2.0); Eosinophils # (auto) 0.7 10 ^3/uL (0-0.8); Eosinophils % (auto) 14.5 % (0.0-7.0); Hematocrit 41.4 % (41.0-53.0); Hemoglobin 13.2 g/dL (13.5-17.5); Lymphocytes # (auto) 1.7 10 ^3/uL (0.4-5.4); Lymphocytes % (auto) 32.9 % (10.0-50.0); Mean Corpuscular Hemoglobin 26.3 pg (28.0-32.0); Mean Corpuscular Hgb Conc. 31.9 g/dL (32.0-36.0); Mean Corpuscular Volume 82.5 fL (80.0-100.0); Monocytes # (auto) 0.6 10 ^3/uL (0-1.3); Monocytes % (auto) 11.2 % (0.0-12.0); Neutrophils # (auto) 2.1 10 ^3/uL (1.6-8.6); Nucleated Red Blood Cells % 0.1 %; Platelet Count (auto) 251 10^3/uL (140-450); Red Blood Cells 5.02 10^6/uL (4.5-5.90); Red Cell Distribution Width 16.6 % (11.8-14.3)
[2024-05-09 10:36] LABS: Alanine Aminotransferase 29 U/L (7-40); Albumin 4.8 g/dL (3.2-4.8); Alkaline Phosphatase 95 U/L (46-116); Anion Gap 6 (5-15); Aspartate Aminotransferase 31 U/L (13-40); BUN/Creatinine Ratio 13.9 (10.0-20.0); Blood Urea Nitrogen 14 mg/dL (9-23); Calcium 10.2 mg/dL (8.7-10.4); Carbon Dioxide 28 mmol/L (20-31); Chloride 104 mmol/L (98-107); Potassium 4.8 mmol/L (3.5-5.1); Sodium 138 mmol/L (136-145); Total Protein 7.3 g/dL (5.7-8.2)
[2024-05-09 10:37] LABS: Bilirubin, Total 0.6 mg/dL (0.2-1.0)
[2024-05-09 10:49] LABS: Glucose 163 mg/dL (74-106)
== END | disposition home or self-care (01) ==
LOC: LAB 10:00
PROVIDERS: ATTEND Internal Medicine
DX: Z00.00 Encounter for general adult medical examination without abnormal findings (principal)
CPT/HCPCS: 36415; 80053; 85025; 87070; 87205

== ENCOUNTER → 2024-05-09 | Outpatient (CLI) | payer BC, MEDICARE ==
[~2024-05-09] MED LIST changes: +FLUT1AER IN
== END | disposition home or self-care (01) ==
LOC: RT 14:37
PROVIDERS: ATTEND Internal Medicine Pulmonary Disease
DX: J18.9 Pneumonia, unspecified organism (principal); R05.3 Chronic cough; R06.9 Unspecified abnormalities of breathing
CPT/HCPCS: 94060; 94727

== ENCOUNTER → 2024-07-18 | Outpatient (CLI) | payer BC, MEDICARE ==
[~2024-07-18] MED LIST changes: +ALBE200T9 PO; +FLUC200T PO
== END | disposition home or self-care (01) ==
LOC: LAB 10:09
PROVIDERS: ATTEND Internal Medicine
DX: Z00.00 Encounter for general adult medical examination without abnormal findings (principal)
CPT/HCPCS: 87070; 87205

== ENCOUNTER 2024-08-15 09:45 | Outpatient (CLI) | payer BC, MEDICARE | END 2024-08-15 17:00 | disposition home or self-care (01) | LOC: LAB 09:45 | PROVIDERS: ATTEND Internal Medicine | DX: J20.9 Acute bronchitis, unspecified (principal) | CPT/HCPCS: 87070; 87205 ==